=== PATIENT | female | born 1995 | race Caucasian/White ===

== ENCOUNTER 2021-08-26 20:01 | Inpatient (IN) ==
[2021-08-26 20:39] LABS: Eosinophils % 0.9 %; Immature Granulocytes % 0.7 % (0-4)
[2021-08-26 20:41] LABS: Basophils % 0.6 %; Immature Platelets 15.2 % (1.1-6.1)
[2021-08-26 20:44] LABS: Basophils # 0.1 K/mcL (0.0-0.2); Eosinophils # 0.1 K/mcL (0.0-0.6); Hematocrit 44.4 % (35.3-44.9); Hemoglobin 15.4 g/dL (11.5-15.4); Lymphocytes # 3.5 K/mcL (0.6-4.6); Lymphocytes % 30.7 %; Mean Corpuscular HGB Conc 34.7 g/dL (31.6-35.5); Mean Corpuscular Volume 92.3 fL (83.0-100.0); Mean Platelet Volume 12.1 fL (9.4-12.4); Monocytes % 8.5 %; Neutrophils # 6.6 K/mcL (1.6-8.9); Platelet Count 283 K/mcL (140-400); Red Blood Count 4.81 M/mcL (3.82-4.97); Red Cell Distribution Width 12.1 % (11.5-14.5); Segmented Neutrophils % 58.6 %; White Blood Count 11.3 K/mcL (4.3-11.1)
[2021-08-26 20:45] LABS: Bacteria,Urine Few per hpf (None-Few); Bilirubin,Urine Negative (Negative); Blood,Urine Trace (Negative); Clarity,Urine Clear (Clear); Color,Urine Yellow (Yellow); Glucose,Urine (UA) Normal (Normal); Ketones,Urine Negative (Negative); Leukocyte Esterase,Urine Negative (Negative); Mucus,Urine Many per lpf (None-Few); Nitrite,Urine Negative (Negative); Protein,Urine Trace mg/dL (Neg-Trace); Specific Gravity,Urine 1.024 (1.010-1.025); Squamous Epithelial Cell,Urine Few per hpf (None-Few); Urobilinogen,Urine Normal (Normal)
[2021-08-26 20:52] LABS: Amphetamine Screen,Urine Negative ng/mL (Cutoff=1000); Barbiturate Screen,Urine Negative ng/mL (Cutoff=200); Benzodiazepines Screen,Urine Negative ng/mL (Cutoff=200); Cannabinoid Screen,Urine Negative ng/mL (Cutoff = 50); Cocaine Screen,Urine Negative ng/mL (Cutoff= 300); Opiate Screen,Urine Negative ng/mL (Cutoff=300); Phencyclidine Screen,Urine Negative ng/mL (Cutoff=25)
[2021-08-26 20:53] LABS: Estimated Average Glucose 111 mg/dl; Hemoglobin A1C 5.5 %
[2021-08-26 21:00] LABS: Acetaminophen < 10 mcg/mL (10-20); BUN/Creatinine Ratio 15 (6-26); Blood Urea Nitrogen 13 mg/dL (6-20); Calcium 10.3 mg/dL (8.6-10.3); Carbon Dioxide 26 mEq/L (23-29); Chloride 102 mEq/L (98-107); Ethanol < 10 mg/dL (Less than 10); Glucose 89 mg/dL (70-105); Osmolality,Calculated 286 (280-300); Potassium 4.1 mEq/L (3.5-5.1); Salicylate < 2.5 mg/dL (15.0-30.0); Sodium 138 mEq/L (136-145); eGFR For African Americans > 60 (> 60); eGFR For Non-African Americans > 60 (> 60)
[2021-08-26 21:20] LABS: Platelet Estimate Normal (Normal)
[2021-08-26 23:32] LABS: Influenza A PCR Negative (Negative); Influenza B PCR Negative (Negative); Resp. Syncytial Virus PCR Negative (Negative); SARS-CoV-2 by PCR (In House) Negative (Negative)
[2021-08-27] MEDS ORDERED: Acetaminophen 325 MG TABLET PO PRN (00:04)
[2021-08-27] MEDS ORDERED: *HR* LORazepam 2 MG/ML VIAL IM PRN (00:04)
[2021-08-27] MEDS ORDERED: *HR* LORazepam 1 MG TABLET PO PRN (00:04)
[2021-08-27] MEDS ORDERED: haloperidoL 5 MG TABLET PO PRN (00:04)
[2021-08-27] MEDS ORDERED: Haloperidol Lactate 5 MG/ML VIAL IM PRN (00:04)
[2021-08-27] MEDS ORDERED: traZODone 50 MG TABLET PO PRN (00:04)
[2021-08-27] MEDS ORDERED: hydrOXYzine pamoate 25 MG CAPSULE PO PRN (00:04)
[2021-08-27] MEDS ORDERED: Mag Hydrox/Al Hydrox/Simeth 30 ML UDC PO PRN (08:15)
[2021-08-27] MEDS ORDERED: MOM Conc 10 ML UD.LIQ PO PRN (08:15)
[2021-08-27] MEDS ORDERED: BuPROPion XL (24 HR) 150 MG TABLET PO SCH (09:00)
[2021-08-27] MEDS: BuPROPion XL (24 HR) 150 MG TABLET PO SCH (09:01)
[2021-08-28] MEDS: BuPROPion XL (24 HR) 150 MG TABLET PO SCH (09:59)
[2021-08-29] MEDS: BuPROPion XL (24 HR) 150 MG TABLET PO SCH (08:40)
[2021-08-30 08:28] VITALS: BP 107/75; PULSE 75; TEMP 97.6; O2SAT 96
[2021-08-30] MEDS: BuPROPion XL (24 HR) 150 MG TABLET PO SCH (08:29)
== END 2021-08-30 12:35 | disposition home or self-care (01) | DRG 885 ==
LOC: EMEROOARM 20:01 → 1ANU 08-27
PROVIDERS: ADMIT Psychiatry & Neurology Psychiatry; ATTEND Psychiatry & Neurology Psychiatry